=== PATIENT | male | born 1975 | race African-American/Black ===

== ENCOUNTER 2024-05-28 09:04 | Emergency (ER) | payer SELFPAY ==
[~2024-05-28] VITALS: Ht 175.3 cm; Wt 81.6 kg
[2024-05-28 09:07] VITALS: O2SAT 98
[2024-05-28] MEDS ORDERED: TRIMO RIGHTEYE (09:17)
[2024-05-28 09:22] VITALS: BP 154/87; PULSE 84; RESP 18; TEMP 36.83628; O2SAT 98
== END 2024-05-28 09:20 | disposition home or self-care (01) ==
LOC: ER 09:04
DX: H10.9 Unspecified conjunctivitis (principal)
CPT/HCPCS: 99283

== ENCOUNTER 2024-06-30 12:13 | Emergency (ER) | payer BC ==
[~2024-06-30] VITALS: Ht 175.3 cm; Wt 81.6 kg
[~2024-06-30 12:13] MED LIST: TRIMO RIGHTEYE
[2024-06-30 12:49] VITALS: O2SAT 98
[2024-06-30] MEDS: SODIUM CHLORIDE 0.9% 1,000 ML IV ONE (13:28)
[2024-06-30 13:30] LABS: BASOPHILS % 0.5 % (0.0-2.0); EOSINOPHILS % 0.5 % (0.0-5.0); HEMATOCRIT. 39.3 % (42.0-52.0); HEMOGLOBIN. 13.5 g/dL (14.0-18.0); LYMPHOCYTES % 29.1 % (20.0-50.0); MEAN CORPUSCULAR HEMOGLOBIN 30.4 pg (28.0-32.0); MEAN CORPUSCULAR HGB CONC 34.3 g/dL (31.0-37.0); MEAN CORPUSCULAR VOLUME 88.8 fL (80.0-94.0); MEAN PLATELET VOLUME 9.3 fl (7.4-10.4); MONOCYTES % 7.7 % (2.0-8.0); NEUTROPHILS % 62.2 % (40.0-76.0); PLATELET 254 x1000/uL (130-400); RED BLOOD CELL COUNT 4.43 mill/uL (4.7-6.1); RED CELL DISTRIBUTION WIDTH 12.4 % (11.6-14.6); WHITE BLOOD COUNT 6.3 x1000/uL (4.5-11.0)
[2024-06-30 13:39] LABS: CHLORIDE 98 mEq/L (98-107); POTASSIUM 4.4 mEq/L (3.5-5.1); SODIUM 131 mEq/L (136-145)
[2024-06-30 13:40] LABS: CALCIUM 9.1 mg/dL (8.7-10.4); CARBON DIOXIDE 28 mEq/L (21-32)
[2024-06-30 13:41] LABS: INR 0.9; PROTHROMBIN TIME 10.3 sec (9.6-11.0)
[2024-06-30 13:45] LABS: CREATININE 1.6 mg/dL (0.6-1.3); UREA NITROGEN BLOOD 15 mg/dL (9-23)
[2024-06-30 13:47] LABS: BETA HYDROXYBUTYRATE 0.2 mMol/L (0.0-0.3)
[2024-06-30 13:52] LABS: CLARITY URINE CLEAR (CLEAR); COLOR URINE YELLOW (YELLOW); GLUCOSE URINE 3+ (NEGATIVE); KETONES URINE NEGATIVE (NEGATIVE); LEUKOCYTE ESTERASE URINE NEGATIVE (NEGATIVE); NITRITE URINE NEGATIVE (NEGATIVE); OCCULT BLOOD URINE 1+ (NEGATIVE); PROTEIN URINE 2+ (NEGATIVE); SPECIFIC GRAVITY URINE 1.033 (1.005-1.030); UROBILINOGEN URINE 0.2 E.U./dL (0.2-1.0)
[2024-06-30 13:55] LABS: TROPONIN I HIGH SENSITIVITY < 4 ng/L (3.0-53)
[2024-06-30 13:56] LABS: GLUCOSE 508 mg/dL (70-105)
[2024-06-30 14:02] LABS: SQUAMOUS EPITHELIAL CELL URINE 1+ /lpf (RARE/1+)
[2024-06-30 14:03] LABS: BACTERIA URINE NONE SEEN; YEAST URINE NONE SEEN
[2024-06-30 14:04] LABS: RBC URINE 0-2 /hpf (0-2); WBC URINE 0-2 /hpf (0-2)
[2024-06-30] MEDS ORDERED: METF-416 MT (14:31)
[2024-06-30] MEDS: INSULIN REGULAR (HUMULIN R) 1000UNITS/10ML VIAL IV NR (15:02)
[2024-06-30 15:54] VITALS: BP 162/84; PULSE 88; RESP 16; TEMP 36.94740; O2SAT 98
== END 2024-06-30 15:55 | disposition home or self-care (01) ==
LOC: ER 12:13
DX: E11.65 Type 2 diabetes mellitus with hyperglycemia (principal)
CPT/HCPCS: 80048; 81003; 82010; 83036; 85025; 85610; 84484; 36415; 71045; 96361; 96374; 99285; J1815; J7030; Z7610 ×3

== ENCOUNTER 2025-03-16 05:53 | Emergency (ER) | payer BC ==
[~2025-03-16] VITALS: Ht 175.3 cm; Wt 78.0 kg
[~2025-03-16 05:53] MED LIST changes: +METF-416 MT
[2025-03-16 06:13] VITALS: O2SAT 99
[2025-03-16] MEDS ORDERED: NEOM1PAC6 TP (06:49)
[2025-03-16] MEDS: ACETAMINOPHEN 325MG TABLET PO ONE (06:53)
[2025-03-16 08:06] VITALS: BP 115/75; PULSE 65; RESP 17; TEMP 37; O2SAT 100
== END 2025-03-16 08:07 | disposition home or self-care (01) ==
LOC: ER 05:53
DX: R51.9 Headache, unspecified (principal); L73.9 Follicular disorder, unspecified; Z79.84 Long term (current) use of oral hypoglycemic drugs; Z79.899 Other long term (current) drug therapy
CPT/HCPCS: 99284